=== PATIENT | male | born 1950 ===

== ENCOUNTER 2016-10-29 10:48 | Outpatient (CLI) | payer MEDICARE ==
--- NOTE | 2016-10-29 13:15 | Cat Scan Report ---
CT CHEST WITHOUT CONTRAST: 10/29/16 10:48:00 CLINICAL: Solitary pulmonary nodule. No comparison. TECHNIQUE: Volumetric acquisition and 1.25 mm scan reconstructions without contrast. FINDINGS: A 5 mm noncalcified right upper lobe pulmonary nodule image 61, series 1. No other lung nodule or mass. However, most of the esophageal wall is abnormally thickened. This involves at least the middle and distal thirds of the esophagus and the wall measures as great as 1 cm in thickness in the distal one third extending to the EG junction. A few small mediastinal lymph nodes no tammy lymphadenopathy. Small bilateral axillary lymph nodes. No supraclavicular or axillary lymphadenopathy. The heart, aorta and pulmonary arteries are unremarkable. Normal thyroid and trachea. The upper abdomen is unremarkable. The bones and soft tissues are normal. IMPRESSION: 1. A 5 mm noncalcified right upper lobe lung nodule. Recommend followup with noncontrast CT in six months. 2. Abnormal esophageal wall thickening which is greater in the distal esophagus. Recommend further evaluation with either endoscopy or a barium study.
== END 2016-10-29 10:49 | disposition home or self-care (01) ==
LOC: SPVIMAG 10:48
PROVIDERS: ATTEND Internal Medicine
DX: R91.8 Other nonspecific abnormal finding of lung field (principal); R91.1 Solitary pulmonary nodule
CPT/HCPCS: 71250